=== PATIENT | female | born 1945 | race Caucasian/White ===

== ENCOUNTER 2016-09-20 11:25 | Inpatient (IN) ==
[2016-09-20] MEDS ORDERED: *HR* OxyCODONE Immed Rel 5 MG TABLET PO PRN ×2 (11:49→11:50)
--- NOTE | 2016-09-20 12:12 | History & Physical Report ---
Date of Encounter: 09/20/16 Time of Encounter: 12:12 24 Hour HP Update - Instructions Instructions: If the History and Physical is less than 30 days old and was completed prior to A.M. admission and or procedure and has NOT been updated on calendar day of procedure please complete this update prior to performing procedure. - Update Patient reports changes in Medical Condition: No Changes in assessment/condition: No Changes in Medication: No Preop tests/diagnostics Reviewed: Yes Surgery Remains Indicated: Yes Consent for Planned Operative Procedure(s) Verified: Yes
--- NOTE | 2016-09-20 12:15 | Physcial Medicine-Consult Note ---
Date of Encounter: 09/21/16 Time of Encounter: 12:13 Physical Medicine - AP (1) Status post right knee replacement Status: Acute Assessment and plan: 1. Rehab: Admit to rehab. Consult PT/OT/TR to address gait, knee ROM, safety , transfers and ADLs. 2. Pain: she is complaining of knee pain. We will adjust her pain medication to control her pain to allow her to participate with therapies 3. DVT prophylaxis: Continue ECASA 325 po daily per her surgeons protocol. Monitor her for signs of dvt. 4. Will monitor for signs of cellulitis of the knee-initiate antibiotic therapy if cellulitis occcurs. 5. Estimated length of stay: 5 days Code(s): Z96.651 - Presence of right artificial knee joint SNOMED Code(s): 678033312 Physical Medicine - HPI - Data of Consult Consult date: 09/20/16 Requesting Physician: Casey Melendez DO Primary Care Provider: Kenn Guzman - Consult Narrative Reason for consult: s/p right total knee arthroplasty History of present illness: Ms. Ramirez is a 71 year old female who presents for inpatient rehabilitation following a right total knee arthroplasty secondary to severe right knee degenerative disease. She is complaining of right knee pain. Otherwise, doing well. CC: Casey Melendez DO Past Med Surg Social Fam HX - Past Medical History Medical history: atrial fibrillation, GERD, hyperlipidemia, hypertension Psychiatric history: no psych history - Social History Smoking Status: Never smoker Smokeless Tobacco Status: No Alcohol use: none Drug use: none - Family History Mother Hx Family Cardiac Disorders: Yes Father Hx Family Cardiac Disorders: Yes Hx Family Endocrine Disorder: Yes (diabetes) Medications and Allergies Aspirin Enteric Coated [Aspirin EC] 325 mg PO DAILY #21 tablet. 09/17/16 [Rx] Albuterol Sulfate [Proair Hfa] 2 puff IH Q4H PRN 09/18/16 [History] Atorvastatin [Lipitor] 40 mg PO HS 09/18/16 [History] Budesonide [Pulmicort Flexhaler 180mcg] 2 puff IH BID 09/18/16 [History] Cetirizine HCl [Zyrtec] 10 mg PO QPM 09/18/16 [History] Duloxetine HCl [Cymbalta] 60 mg PO DAILY 09/18/16 [History] Ergocalciferol (VITAMIN D2) [Vitamin D2] 50,000 unit PO QMONTH 09/18/16 [History ] Fluticasone Propionate Nasal [Flonase] 1 spr NS DAILY 09/18/16 [History] Losartan Potassium [Cozaar] 100 mg PO DAILY 09/18/16 [History] Magnesium Oxide [Magnesium] 250 mg PO DAILY 09/18/16 [History] Metformin HCl [Metformin HCl ER] 500 mg PO QPM 09/18/16 [History] Metoprolol Succinate 200 mg PO DAILY 09/18/16 [History] Omeprazole [PriLOSEC] 20 mg PO DAILY 09/18/16 [History] OxyCODONE Immed Rel [Roxicodone 5 MG] 5 mg PO Q6HR PRN 09/20/16 [History] Allergies ciprofloxacin [From Cipro] Allergy (Mild, Verified 09/18/16 09:34) Hives - Constitutional Constitutional: Absent: chills, fever(s) - Cardiovascular Cardiovascular: Absent: chest pain, diaphoresis, dyspnea - Respiratory Respiratory: Absent: cough, dyspnea - Gastrointestinal Gastrointestinal: Present: constipation. Absent: abdominal pain - Genitourinary Genitourinary: Absent: urinary frequency, urinary incontinence, urinary urgency - Musculoskeletal Musculoskeletal: Present: arthralgias - Integumentary Integumentary: Present: erythema Physical Medicine - Exam - Constitutional General appearance: average body habitus, cooperative, no acute distress - Respiratory Respiratory exam: Present: CTAB - Cardiovascular Cardiovascular exam: Present: RRR - GI/Abdominal GI/Abdominal exam: Present: normal bowel sounds, soft. Absent: tenderness - Extremities Exam Extremities exam: Absent: calf tenderness Additional comments: Dressing is intact over the right knee. There is erythema along the medial and lateral aspects of the knee and thigh. Motor strength is 5/5 in the bilateral lower limbs. No calf pain. Physical Medicine - Results - Labs CBC & Chem 7: 09/21/16 05:15 09/21/16 05:15 Consult Discharge Plan - Plan Referrals: Armani Valentin MD [Primary Care Provider] - (Follow up on September at 8:30 am Maria Elena Salgado [address] [facility] [address] [place], [place] [phone] Follow up on Thursday, September 29, 2016 at 2:00 pm Chris Linares [address] [place], [place] [phone] Follow up on September at 9:15 am Bartolome Anderson [address] [place], [place] [phone] Follow up on Monday, October 17, 2016 at 8:40 am Tree Johnson [address] [place], [place] [phone] Follow up on Sunday, December 04, 2016 at 2:00 pm Armani Valentin [address] [place] [address] )
--- NOTE | 2016-09-20 13:43 | Internal Med History&Physical ---
Date of Encounter: 09/20/16 Time of Encounter: 13:23 Assessment and Plan (1) Status post right knee replacement Current visit: Yes Status: Acute Patient is here for rehabilitation status post right total knee replacement for osteoarthritis. Internal Medicine - H&P: HPI Chief complaint: Patient is here for rehabilitation status post right total knee replacement Admitted From: Hospital to Hospital Transfer Plans for Post Hospital Care: Home History of present illness: Ms. Ramirez is a 71 year old female Patient has a history of long-term pain associated with osteoarthritis of her knee Past Med Surg Social Fam HX - Past Medical History Medical history: atrial fibrillation, GERD, hyperlipidemia, hypertension Psychiatric history: no psych history - Social History Smoking Status: Never smoker Smokeless Tobacco Status: No Alcohol use: none Drug use: none - Family History Mother Hx Family Cardiac Disorders: Yes Father Hx Family Cardiac Disorders: Yes Hx Family Endocrine Disorder: Yes (diabetes) Internal Medicine - H&P: Meds Aspirin Enteric Coated [Aspirin EC] 325 mg PO DAILY #21 tablet. 09/17/16 [Rx] Albuterol Sulfate [Proair Hfa] 2 puff IH Q4H PRN 09/18/16 [History] Atorvastatin [Lipitor] 40 mg PO HS 09/18/16 [History] Budesonide [Pulmicort Flexhaler 180mcg] 2 puff IH BID 09/18/16 [History] Cetirizine HCl [Zyrtec] 10 mg PO QPM 09/18/16 [History] Duloxetine HCl [Cymbalta] 60 mg PO DAILY 09/18/16 [History] Ergocalciferol (VITAMIN D2) [Vitamin D2] 50,000 unit PO QMONTH 09/18/16 [History ] Fluticasone Propionate Nasal [Flonase] 1 spr NS DAILY 09/18/16 [History] Losartan Potassium [Cozaar] 100 mg PO DAILY 09/18/16 [History] Magnesium Oxide [Magnesium] 250 mg PO DAILY 09/18/16 [History] Metformin HCl [Metformin HCl ER] 500 mg PO QPM 09/18/16 [History] Metoprolol Succinate 200 mg PO DAILY 09/18/16 [History] Omeprazole [PriLOSEC] 20 mg PO DAILY 09/18/16 [History] OxyCODONE Immed Rel [Roxicodone 5 MG] 5 mg PO Q6HR PRN 09/20/16 [History] Allergies ciprofloxacin [From Cipro] Allergy (Mild, Verified 09/18/16 09:34) Hives All Systems PM: A 10-system review of systems was performed and is negative for pertinent findings except as documented above in the HPI. - Constitutional Vitals: Temp Pulse Resp BP Pulse Ox 98.2 F 88 16 93/56 94 L 09/20/16 11:32 09/20/16 11:32 09/20/16 11:32 09/20/16 11:32 09/20/16 11:32 - Head Head exam: Present: atraumatic, normal inspection, normocephalic - Neck Neck exam general surgery: Present: supple, trachea midline. Absent: lymphadenopathy - Respiratory Respiratory exam: Present: CTAB. Absent: accessory muscle use, rales, rhonchi, wheezes - Cardiovascular Cardiovascular exam: Present: RRR, +S1, +S2. Absent: diastolic murmur, gallop, rubs, systolic murmur - GI/Abdominal GI/Abdominal exam: Present: normal bowel sounds, soft, no peritoneal signs. Absent: distended, tenderness Internal Med - H&P Results - Labs Labs: Pending
[2016-09-20] MEDS: MOM Conc 10 ML UD.LIQ PO PRN (14:51)
[2016-09-20] MEDS: *HR* OxyCODONE/APAP 10/325 TABLET PO PRN ×2 (14:51→21:09)
[2016-09-20] MEDS ORDERED: METFORMIN HCL 500 MG PO SCH (18:00)
[2016-09-20] MEDS: Loratadine 10 MG TABLET PO SCH (18:40)
[2016-09-20] MEDS: *HR* Metformin 500 MG TABLET PO SCH (18:40)
[2016-09-20] MEDS: Beclomethasone 80mcg MDI IH SCH (22:13)
[2016-09-21] MEDS: *HR* OxyCODONE/APAP 10/325 TABLET PO PRN ×4 (04:23→20:43)
[2016-09-21 05:39] LABS: Basophils % 0.3 %; Eosinophils # 0.1 K/mcL (0.0-0.6); Eosinophils % 0.6 %; Hematocrit 30.8 % (35.3-44.9); Hemoglobin 9.9 g/dL (11.5-15.4); Immature Granulocytes % 0.6 % (0-4); Lymphocytes % 17.5 %; Mean Corpuscular HGB Conc 32.1 g/dL (31.6-35.5); Mean Corpuscular Hemoglobin 26.9 pg (28.0-33.3); Mean Corpuscular Volume 83.7 fL (83.0-100.0); Mean Platelet Volume 9.8 fL (9.4-12.4); Neutrophils # 8.4 K/mcL (1.6-8.9); Platelet Count 228 K/mcL (140-400); Red Blood Count 3.68 M/mcL (3.82-4.97)
[2016-09-21 05:40] LABS: INR 1.3; Prothrombin Time 13.7 Seconds (9.4-12.1)
[2016-09-21 05:49] LABS: BUN/Creatinine Ratio 22 (6-26); Blood Urea Nitrogen 17 mg/dL (7-20); Carbon Dioxide 26 mEq/L (19-29); Chloride 100 mEq/L (98-109); Glucose 158 mg/dL (70-99); Osmolality,Calculated 285 (280-300); Potassium 4.6 mEq/L (3.5-4.5); Sodium 135 mEq/L (136-145); eGFR For African Americans > 60 (> 60); eGFR For Non-African Americans > 60 (> 60)
[2016-09-21] MEDS: Aspirin Enteric Coated 325 MG Tablet PO SCH (08:10)
[2016-09-21] MEDS: Beclomethasone 80mcg MDI IH SCH ×2 (08:12→20:43)
[2016-09-21] MEDS: MAGNESIUM OXIDE 250 MG PO SCH (08:12)
[2016-09-21] MEDS ORDERED: Metoprolol XL (24 HR) Succ 50 MG TAB.ER.24H PO SCH ×2 (09:00)
[2016-09-21] MEDS ORDERED: Fluticasone Propionate Nasal 50 MCG/SPRAY BOTTLE NS SCH (09:00)
--- NOTE | 2016-09-21 13:20 | Internal Med Progress Note ---
Date of Encounter: 09/21/16 Time of Encounter: 13:19 - Assessment and plan (1) Status post right knee replacement Current Visit: Yes Status: Acute Assessment and plan: Patient has had a long history of pain and osteoarthritis - Time Spent With Patient less than 15 minutes - Subjective Interval history: Patient's beginning to work with a therapist and ambulating with a walker short distances. She is going to the gym with PT and OT along with TR. - Constitutional Vitals: Temp Pulse Resp BP Pulse Ox 96.7 F L 106 16 92/60 93 L 09/21/16 11:50 09/21/16 11:50 09/21/16 11:50 09/21/16 11:50 09/21/16 11:50 - Head Head exam: Present: atraumatic, normal inspection, normocephalic - Neck Neck exam general surgery: Present: supple, trachea midline. Absent: lymphadenopathy - Respiratory Respiratory exam: Present: CTAB. Absent: accessory muscle use, rales, rhonchi, wheezes - Cardiovascular Cardiovascular exam: Present: RRR, +S1, +S2. Absent: diastolic murmur, gallop, rubs, systolic murmur - GI/Abdominal GI/Abdominal exam: Present: normal bowel sounds, soft, no peritoneal signs. Absent: distended, tenderness Internal Medicine: Result - Labs CBC & Chem 7: 09/21/16 05:15 09/21/16 05:15 Labs: Short CBC 09/21/16 Range/Units 05:15 WBC 11.6 H (4.3-11.1) K/mcL Hgb 9.9 L (11.5-15.4) g/dL Hct 30.8 L (35.3-44.9) % Plt Count 228 (140-400) K/mcL Neutrophils # 8.4 (1.6-8.9) K/mcL BMP 09/21/16 05:15 Sodium 135 L Potassium 4.6 H Chloride 100 Carbon Dioxide 26 BUN 17 Creatinine 0.77 Glucose 158 H Calcium 9.0 Lab is stable - ABG Interpretation ABG results: PT/INR, D-dimer PT 13.7 Seconds (9.4-12.1) H 09/21/16 05:15 Consult Discharge Plan - Plan Referrals: Armani Valentin MD [Primary Care Provider] - (Follow up on September at 8:30 am Maria Elena Salgado [address] [place], [place] [phone] Follow up on Thursday, September 29, 2016 at 2:00 pm Chris Linares [address] [place], [place] [phone] Follow up on September at 9:15 am Bartolome Anderson [address] [place], [place] [phone] Follow up on Monday, October 17, 2016 at 8:40 am Tree Johnson [address] [place], [place] [phone] Follow up on Sunday, December 04, 2016 at 2:00 pm Armani Valentin [address] [place] [address] )
[2016-09-21] MEDS: Metoprolol XL (24 HR) Succ 50 MG TAB.ER.24H PO SCH (16:50)
[2016-09-21] MEDS: Loratadine 10 MG TABLET PO SCH (18:22)
[2016-09-21] MEDS: *HR* Metformin 500 MG TABLET PO SCH (18:22)
[2016-09-21] MEDS: Fluticasone Propionate Nasal 50 MCG/SPRAY BOTTLE NS SCH (20:43)
[2016-09-22] MEDS: *HR* OxyCODONE/APAP 10/325 TABLET PO PRN (06:43)
[2016-09-22] MEDS: MAGNESIUM OXIDE 250 MG PO SCH (09:05)
[2016-09-22] MEDS: Aspirin Enteric Coated 325 MG Tablet PO SCH (09:05)
[2016-09-22] MEDS: Beclomethasone 80mcg MDI IH SCH ×2 (09:06→21:05)
[2016-09-22] MEDS ORDERED: *HR* OxyCODONE/APAP 5/325 TABLET PO PRN ×2 (11:39)
[2016-09-22] MEDS: *HR* OxyCODONE/APAP 5/325 TABLET PO PRN ×2 (13:39→22:21)
[2016-09-22] MEDS: MOM Conc 10 ML UD.LIQ PO PRN (17:47)
[2016-09-22] MEDS: Loratadine 10 MG TABLET PO SCH (17:47)
[2016-09-22] MEDS: *HR* Metformin 500 MG TABLET PO SCH (17:47)
[2016-09-22] MEDS: Metoprolol XL (24 HR) Succ 50 MG TAB.ER.24H PO SCH (17:48)
[2016-09-22] MEDS: Fluticasone Propionate Nasal 50 MCG/SPRAY BOTTLE NS SCH (21:05)
[2016-09-23] MEDS: *HR* OxyCODONE/APAP 5/325 TABLET PO PRN ×3 (06:53→20:39)
[2016-09-23] MEDS: Aspirin Enteric Coated 325 MG Tablet PO SCH (08:05)
[2016-09-23] MEDS: Beclomethasone 80mcg MDI IH SCH ×2 (08:05→20:38)
[2016-09-23] MEDS: MAGNESIUM OXIDE 250 MG PO SCH (08:07)
[2016-09-23] MEDS: Metoprolol XL (24 HR) Succ 50 MG TAB.ER.24H PO SCH (17:42)
[2016-09-23] MEDS: Loratadine 10 MG TABLET PO SCH (17:42)
[2016-09-23] MEDS: *HR* Metformin 500 MG TABLET PO SCH (17:42)
--- NOTE | 2016-09-23 17:58 | Internal Med Progress Note ---
Date of Encounter: 09/23/16 Time of Encounter: 17:56 - Assessment and plan (1) Status post right knee replacement Current Visit: Yes Status: Acute Assessment and plan: Doing better with PT OT. Improving in terms of gait, ambulation. Range of motion improving. Patient has had a long history of pain and osteoarthritis (2) Arrhythmia Current Visit: Yes Status: Chronic Assessment and plan: Rate controlled with metoprolol occasionally blood pressure is below 100 systolic. Would get symptomatic. Qualifiers: Arrhythmia type: unspecified cardiac arrhythmia Qualified Code(s): I49.9 - Cardiac arrhythmia, unspecified (3) Hypertension Current Visit: Yes Status: Chronic Qualifiers: Hypertension type: unspecified secondary hypertension Qualified Code(s): I15.9 - Secondary hypertension, unspecified; I15 - Secondary hypertension - Time Spent With Patient less than 15 minutes - Subjective Interval history: Patient feels better today however still feels dizzy when she stands up. The dizziness seems to be better when her blood pressure is up. She complains of constipation. She still complains of right knee pain. No shortness of breath. No chest pain. No syncopal episode. Good oral intake. - Constitutional Vitals: Temp Pulse Resp BP Pulse Ox 97.2 F L 101 16 144/105 97 09/23/16 07:21 09/23/16 07:21 09/23/16 07:21 09/23/16 07:21 09/23/16 07:21 General appearance: Present: A&O X 3, pleasant, no acute distress - Respiratory Respiratory exam: Present: CTAB. Absent: accessory muscle use, rales, rhonchi, wheezes - Cardiovascular Cardiovascular exam: Present: irregular rhythm - GI/Abdominal GI/Abdominal exam: Present: normal bowel sounds, soft, no peritoneal signs. Absent: distended, tenderness - Expanded Lower Extremities Exam Knee exam: Present: erythema, swelling, tenderness. Absent: warmth - Neurological Exam Neurological exam: Present: oriented X3, no focal deficits. Absent: pronater drift, facial droop, speech deficit Internal Medicine: Result - Labs CBC & Chem 7: 09/21/16 05:15 09/21/16 05:15 - ABG Interpretation ABG results: PT/INR, D-dimer PT 13.7 Seconds (9.4-12.1) H 09/21/16 05:15 - VTE Documentation of Mechanical Device: Graduated compression elastic hosiery Consult Discharge Plan - Plan Referrals: Armani Valentin MD [Primary Care Provider] - (Follow up on September at 8:30 am Maria Elena Salgado [address] [place], [place] [phone] Follow up on Thursday, September 29, 2016 at 2:00 pm Chris Linares [address] [place], [place] [phone] Follow up on September at 9:15 am Bartolome Anderson [address] [place], [place] [phone] Follow up on Monday, October 17, 2016 at 8:40 am Tree Johnson [address] [place], [place] [phone] Follow up on Sunday, December 04, 2016 at 2:00 pm Armani Valentin [address] [place], [place] [phone])
[2016-09-23] MEDS: Fluticasone Propionate Nasal 50 MCG/SPRAY BOTTLE NS SCH (20:39)
--- NOTE | 2016-09-24 09:10 | Internal Med Progress Note ---
Date of Encounter: 09/24/16 Time of Encounter: 09:09 - Assessment and plan (1) Status post right knee replacement Current Visit: Yes Status: Acute Assessment and plan: Doing better with PT OT. Improving in terms of gait, ambulation. Range of motion improving. Patient has had a long history of pain and osteoarthritis (2) Arrhythmia Current Visit: Yes Status: Chronic Assessment and plan: Rate controlled with metoprolol occasionally blood pressure is below 100 systolic. Would get symptomatic. Qualifiers: Arrhythmia type: unspecified cardiac arrhythmia Qualified Code(s): I49.9 - Cardiac arrhythmia, unspecified (3) Hypertension Current Visit: Yes Status: Chronic Qualifiers: Hypertension type: unspecified secondary hypertension Qualified Code(s): I15.9 - Secondary hypertension, unspecified; I15 - Secondary hypertension - Subjective Interval history: Patient feels better today however still feels dizzy when she stands up. The dizziness seems to be better when her blood pressure is up. She complains of constipation. She still complains of right knee pain. No shortness of breath. No chest pain. No syncopal episode. Good oral intake. - Constitutional Vitals: Temp Pulse Resp BP Pulse Ox 98.4 F 87 18 128/65 97 09/24/16 07:00 09/24/16 07:00 09/24/16 07:00 09/24/16 07:00 09/24/16 07:00 General appearance: Present: A&O X 3, pleasant, no acute distress - Respiratory Respiratory exam: Present: CTAB. Absent: accessory muscle use, rales, rhonchi, wheezes - Cardiovascular Cardiovascular exam: Present: RRR, +S1, +S2. Absent: diastolic murmur, gallop, rubs, systolic murmur - GI/Abdominal GI/Abdominal exam: Present: normal bowel sounds, soft, no peritoneal signs. Absent: distended, tenderness Internal Medicine: Result - Labs CBC & Chem 7: 09/21/16 05:15 09/21/16 05:15 - ABG Interpretation ABG results: PT/INR, D-dimer PT 13.7 Seconds (9.4-12.1) H 09/21/16 05:15 - VTE Documentation of Mechanical Device: Graduated compression elastic hosiery Consult Discharge Plan - Plan Referrals: Armani Valentin MD [Primary Care Provider] - (Follow up on September at 8:30 am Maria Elena Salgado [address] [place], [place] [phone] Follow up on Thursday, September 29, 2016 at 2:00 pm Chris Linares [address] [place], [place] [phone] Follow up on September at 9:15 am Bartolome Anderson [address] [place], [place] [phone] Follow up on Monday, October 17, 2016 at 8:40 am Tree Johnson [address] [place], [place] [phone] Follow up on Sunday, December 04, 2016 at 2:00 pm Armani Valentin [address] [place] [address] )
[2016-09-24] MEDS: *HR* OxyCODONE/APAP 5/325 TABLET PO PRN ×4 (09:16→22:59)
[2016-09-24] MEDS: Aspirin Enteric Coated 325 MG Tablet PO SCH (09:16)
[2016-09-24] MEDS: MOM Conc 10 ML UD.LIQ PO PRN (09:17)
[2016-09-24] MEDS: Beclomethasone 80mcg MDI IH SCH ×2 (09:17→20:38)
[2016-09-24] MEDS: MAGNESIUM OXIDE 250 MG PO SCH (09:17)
[2016-09-24] MEDS: *HR* Metformin 500 MG TABLET PO SCH (18:01)
[2016-09-24] MEDS: Metoprolol XL (24 HR) Succ 50 MG TAB.ER.24H PO SCH (18:01)
[2016-09-24] MEDS: Loratadine 10 MG TABLET PO SCH (18:01)
[2016-09-24] MEDS: Fluticasone Propionate Nasal 50 MCG/SPRAY BOTTLE NS SCH (20:38)
[2016-09-25 05:26] LABS: Basophils # 0.1 K/mcL (0.0-0.2); Basophils % 0.8 %; Eosinophils # 0.2 K/mcL (0.0-0.6); Eosinophils % 1.8 %; Hematocrit 29.5 % (35.3-44.9); Hemoglobin 9.3 g/dL (11.5-15.4); Immature Granulocytes % 0.9 % (0-4); Lymphocytes # 3.3 K/mcL (0.6-4.6); Lymphocytes % 31.6 %; Mean Corpuscular HGB Conc 31.5 g/dL (31.6-35.5); Mean Corpuscular Hemoglobin 26.9 pg (28.0-33.3); Mean Corpuscular Volume 85.3 fL (83.0-100.0); Mean Platelet Volume 9.4 fL (9.4-12.4); Monocytes # 0.8 K/mcL (0.0-1.3); Monocytes % 7.4 %; Neutrophils # 5.9 K/mcL (1.6-8.9); Platelet Count 292 K/mcL (140-400); Red Blood Count 3.46 M/mcL (3.82-4.97); Red Cell Distribution Width 15.9 % (11.5-14.5); Segmented Neutrophils % 57.5 %
[2016-09-25 05:38] LABS: BUN/Creatinine Ratio 29 (6-26); Blood Urea Nitrogen 22 mg/dL (7-20); Calcium 9.4 mg/dL (8.6-10.8); Carbon Dioxide 25 mEq/L (19-29); Chloride 104 mEq/L (98-109); Glucose 141 mg/dL (70-99); Osmolality,Calculated 292 (280-300); Potassium 5.8 mEq/L (3.5-4.5); Sodium 138 mEq/L (136-145); eGFR For African Americans > 60 (> 60); eGFR For Non-African Americans > 60 (> 60)
[2016-09-25] MEDS: *HR* OxyCODONE/APAP 5/325 TABLET PO PRN ×3 (08:22→21:15)
[2016-09-25] MEDS: Aspirin Enteric Coated 325 MG Tablet PO SCH (08:22)
[2016-09-25] MEDS: Beclomethasone 80mcg MDI IH SCH ×2 (08:23→21:15)
[2016-09-25] MEDS: MAGNESIUM OXIDE 250 MG PO SCH (08:24)
--- NOTE | 2016-09-25 13:30 | Internal Med Progress Note ---
Date of Encounter: 09/25/16 Time of Encounter: 13:27 - Assessment and plan (1) Status post right knee replacement Current Visit: Yes Status: Acute - Subjective Interval history: Patient complains quite often or fatigue. Staff came to me and stated that her pulse rate was up. She does have a history of atrial fib. I am going to get an EKG and follow this and consider maybe adding Lanoxin. She also has appointment with her brick offbearer at the end of the week. - Constitutional Vitals: Temp Pulse Resp BP Pulse Ox 98.3 F 81 16 127/63 97 09/25/16 07:16 09/25/16 07:16 09/25/16 07:16 09/25/16 07:16 09/25/16 07:16 General appearance: Present: A&O X 3, pleasant, no acute distress - Head Head exam: Present: atraumatic, normal inspection, normocephalic - Neck Neck exam general surgery: Present: supple, trachea midline. Absent: lymphadenopathy - Respiratory Respiratory exam: Present: CTAB. Absent: accessory muscle use, rales, rhonchi, wheezes - Cardiovascular Cardiovascular exam: Present: irregular rhythm, RRR, +S1, +S2. Absent: diastolic murmur, gallop, rubs, systolic murmur Internal Medicine: Result - Labs CBC & Chem 7: 09/25/16 04:45 09/25/16 04:45 Labs: Short CBC 09/25/16 Range/Units 04:45 WBC 10.3 (4.3-11.1) K/mcL Hgb 9.3 L (11.5-15.4) g/dL Hct 29.5 L (35.3-44.9) % Plt Count 292 (140-400) K/mcL Neutrophils # 5.9 (1.6-8.9) K/mcL BMP 09/25/16 04:45 Sodium 138 Potassium 5.8 H Chloride 104 Carbon Dioxide 25 BUN 22 H Creatinine 0.75 Glucose 141 H Calcium 9.4 - ABG Interpretation ABG results: PT/INR, D-dimer PT 13.7 Seconds (9.4-12.1) H 09/21/16 05:15 - VTE Documentation of Mechanical Device: Graduated compression elastic hosiery Consult Discharge Plan - Plan Referrals: Armani Valentin MD [Primary Care Provider] - (Follow up on September at 8:30 am Maria Elena Salgado [address] [place], [place] [phone] Follow up on Thursday, September 29, 2016 at 2:00 pm Chris Linares [address] [place], [place] [phone] Follow up on September at 9:15 am Bartolome Anderson [address] [place], [place] [phone] Follow up on Monday, October 17, 2016 at 8:40 am Tree Johnson [address] [place], [place] [phone] Follow up on Sunday, December 04, 2016 at 2:00 pm Armani Valentin [address] [place] [address] )
[2016-09-25] MEDS ORDERED: *HR* Digoxin 0.5 MG/2 ML AMPUL IVP ONE (15:15)
[2016-09-25] MEDS: *HR* Digoxin 0.5 MG/2 ML AMPUL IVP SCH ×2 (17:03→18:14)
[2016-09-25] MEDS: Metoprolol XL (24 HR) Succ 50 MG TAB.ER.24H PO SCH (18:15)
[2016-09-25] MEDS: *HR* Metformin 500 MG TABLET PO SCH (18:15)
[2016-09-25] MEDS: Loratadine 10 MG TABLET PO SCH (18:15)
[2016-09-25] MEDS: Fluticasone Propionate Nasal 50 MCG/SPRAY BOTTLE NS SCH (21:15)
[2016-09-26] MEDS: *HR* OxyCODONE/APAP 5/325 TABLET PO PRN ×4 (07:42→21:36)
[2016-09-26] MEDS: Beclomethasone 80mcg MDI IH SCH ×2 (08:14→21:36)
[2016-09-26] MEDS: Aspirin Enteric Coated 325 MG Tablet PO SCH (08:15)
[2016-09-26] MEDS: MAGNESIUM OXIDE 250 MG PO SCH (10:23)
--- NOTE | 2016-09-26 13:46 | Internal Med Progress Note ---
Date of Encounter: 09/26/16 Time of Encounter: 13:44 - Assessment and plan (1) Status post right knee replacement Current Visit: Yes Status: Acute Assessment and plan: Patients taking therapy and improving on a daily basis. (2) Atrial fib/flutter, transient Current Visit: Yes Status: Acute Assessment and plan: Controlled and I am reported on 0.25 of dig daily - Time Spent With Patient less than 15 minutes - Subjective Interval history: Patient is much better today. The last pulse rate was 70. Patient is working with her therapist. - Constitutional Vitals: Temp Pulse Resp BP Pulse Ox 97.4 F L 125 20 110/60 98 09/26/16 11:00 09/26/16 11:00 09/26/16 11:00 09/26/16 13:15 09/26/16 11:00 General appearance: Present: A&O X 3, pleasant, no acute distress - Head Head exam: Present: atraumatic, normal inspection, normocephalic - Neck Neck exam general surgery: Present: supple, trachea midline. Absent: lymphadenopathy - Respiratory Respiratory exam: Present: CTAB. Absent: accessory muscle use, rales, rhonchi, wheezes - Cardiovascular Cardiovascular exam: Present: RRR, +S1, +S2. Absent: diastolic murmur, gallop, rubs, systolic murmur Internal Medicine: Result - Labs CBC & Chem 7: 09/25/16 04:45 09/25/16 04:45 Labs: After follow her potassium. - ABG Interpretation ABG results: PT/INR, D-dimer PT 13.7 Seconds (9.4-12.1) H 09/21/16 05:15 - VTE Documentation of Mechanical Device: Graduated compression elastic hosiery Consult Discharge Plan - Plan Referrals: Maria Elena Salgado, PAC [Physician Fitness Assistant] - 10/04/16 1:45 pm Armani Valentin MD [Primary Care Provider] - (Follow up on September at 8:30 am Maria Elena Salgdao [address] [place], [place] [phone] Follow up on Thursday, September 29, 2016 at 2:00 pm Chris Linares [address] [place], [place] [phone] Follow up on September at 9:15 am Bartolome Anderson [address] [place], [place] [phone] Follow up on Monday, October 17, 2016 at 8:40 am Tree Johnson [address] [place], [place] [phone] Follow up on Sunday, December 04, 2016 at 2:00 pm Armani Valentin [address] [place] [address] )
[2016-09-26] MEDS: *HR* Digoxin 0.25 MG TABLET PO SCH (14:28)
--- NOTE | 2016-09-26 14:39 | Electrocardiograph Report ---
[facility] Test Date: 2016-09-25 Pat Name: Florina Ramirez Department: [id number] Room: 109 Gender: F Cane Stripper: SRIKANTH : 1945 Requested By: Casey Melendez Order Number: [id number] Reading MD: Shelby Linares Measurements Intervals [place] Rate: 119 P: VT: 0 QRS: 4 QRSD: 77 T: 10 QT: 349 QTc: 419 Interpretive Statements ATRIAL FIBRILLATION WITH RAPID VENTRICULAR RESPONSE LOW QRS VOLTAGE IN PRECORDIAL LEADS NONSPECIFIC ST \T\ T-WAVE ABNORMALITY ABNORMAL RHYTHM ECG Electronically Signed On 09-26-16 14:28:08 EST by Shelby Linares
[2016-09-26] MEDS: Metoprolol XL (24 HR) Succ 50 MG TAB.ER.24H PO SCH (17:38)
[2016-09-26] MEDS: Loratadine 10 MG TABLET PO SCH (17:38)
[2016-09-26] MEDS: *HR* Metformin 500 MG TABLET PO SCH (17:38)
[2016-09-26] MEDS: Fluticasone Propionate Nasal 50 MCG/SPRAY BOTTLE NS SCH (21:36)
[2016-09-27 05:40] LABS: BUN/Creatinine Ratio 29 (6-26); Blood Urea Nitrogen 23 mg/dL (7-20); Calcium 9.5 mg/dL (8.6-10.8); Carbon Dioxide 21 mEq/L (19-29); Chloride 106 mEq/L (98-109); Glucose 124 mg/dL (70-99); Osmolality,Calculated 289 (280-300); Potassium 5.4 mEq/L (3.5-4.5); Sodium 137 mEq/L (136-145); eGFR For African Americans > 60 (> 60); eGFR For Non-African Americans > 60 (> 60)
[2016-09-27] MEDS: *HR* OxyCODONE/APAP 5/325 TABLET PO PRN ×3 (08:03→19:24)
[2016-09-27] MEDS: Aspirin Enteric Coated 325 MG Tablet PO SCH (08:04)
[2016-09-27] MEDS: MAGNESIUM OXIDE 250 MG PO SCH (08:04)
[2016-09-27] MEDS: Beclomethasone 80mcg MDI IH SCH ×2 (08:04→19:23)
[2016-09-27] MEDS: *HR* Digoxin 0.25 MG TABLET PO SCH (08:04)
--- NOTE | 2016-09-27 16:09 | Psychological Evaluation ---
Date of Encounter: 09/27/16 Time of Encounter: 13:00 History of Present Illness History of present illness: Ms. Ramirez is a 71 year old female admitted to [facility] for rehabilitation following a right total knee replacement due to osteoarthritis. Ms. Ramirez was seen on tis date to assess her emotional adjustment as she has been tearful during her rehabilitation treatment. Past Medical History Medical history: Significant for arthritis, atrial fibrillation, GERD, HTN and hyperlipidemia. - Psychiatric History Additional Psychiatric History: Ms. Ramirez reported that she has been treated for depression by her primary care physician and took Lexapro for a number of years. Her antidepressant medication was switched to Cymbalta in May 2016. 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 There is no history of psychiatric hospitalization and no history of suicidal ideation, intention or attempt. Family psychiatric hx: Ms. Ramirez reported that depression runs on her father's side of the family and two of her aunts had depression. Home Medications and Allergies Aspirin Enteric Coated [Aspirin EC] 325 mg PO DAILY #21 tablet. 09/17/16 [Rx] Albuterol Sulfate [Proair Hfa] 2 puff IH Q4H PRN 09/18/16 [History] Atorvastatin [Lipitor] 40 mg PO HS 09/18/16 [History] Budesonide [Pulmicort Flexhaler 180mcg] 2 puff IH BID 09/18/16 [History] Cetirizine HCl [Zyrtec] 10 mg PO QPM 09/18/16 [History] Duloxetine HCl [Cymbalta] 60 mg PO DAILY 09/18/16 [History] Ergocalciferol (VITAMIN D2) [Vitamin D2] 50,000 unit PO QMONTH 09/18/16 [History ] Fluticasone Propionate Nasal [Flonase] 1 spr NS DAILY 09/18/16 [History] Losartan Potassium [Cozaar] 100 mg PO DAILY 09/18/16 [History] Magnesium Oxide [Magnesium] 250 mg PO DAILY 09/18/16 [History] Metformin HCl [Metformin HCl ER] 500 mg PO QPM 09/18/16 [History] Metoprolol Succinate 200 mg PO DAILY 09/18/16 [History] Omeprazole [PriLOSEC] 20 mg PO DAILY 09/18/16 [History] OxyCODONE Immed Rel [Roxicodone 5 MG] 5 mg PO Q6HR PRN 09/20/16 [History] Allergies ciprofloxacin [From Cipro] Allergy (Mild, Verified 09/18/16 09:34) Hives Social History - Social History Social History: Ms. Ramirez has been a for 24 years. Her young (age 47) of colon cancer. She has two sons (ages 47 and 43). Her social support system consists of her sons, [id number] and a close friend. 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 Since her long-term, she spends her typical day doing house chores, cooking, visiting with friends, exercising at a senior center and watching TV. She hopes that the knee replacement will allow her to walk for exercise without intense pain. - Tobacco Use Smoking Status: Never smoker - Alcohol Use Alcohol Use: none - Drug Use Drug Use: none Cognitive/Emotional Assessment - Cognitive Ability Additional Findings: Ms. Ramirez was alert, attentive and fully oriented. Speech was clear, fluent and effective. Speech was of normal rate and intensity. Thought processes were coherent, goal-directed and logical. There were no signs of delusional ideation or perceptual disturbances. She was not formally assessed for any cognitive dysfunction. She was able to provide personal and medical information without problem. Verbal comprehension appeared intact and there were no abnormality in cognitive functioning noted. - Emotional Status Additional Findings: Ms. Ramirez was friendly, cooperative and pleasant. She was open and forthright and presented as open to treatment suggestions. She acknowledged that she has been more emotional and tearful and attributed this to lack of sleep, pain medication and intense pain post-surgery. She stated that she feels she is making good gains in her rehabilitation therapy and expects to be able to return home and to independent living. She expressed confidence in her ability to manage her pain and stated that she has been monitoring her negative self- statements and "sweeping bad thoughts away". Mood appeared mildly depressed. She exhibited good emotional control and did not become tearful during this interview. BDI- Fast Screen: score 0 (no indication of major depressive disorder) Assessment & Plan - Diagnosis (1) Adjustment disorder with depressed mood - Treatment Plan Treatment Plan/Recommendations: We reviewed setting realistic goals and expectations for her recovery and rehabilitation. Ms. Ramirez was given a suggestion to track her progress in a landscape architect and planner or her cell phone to remind her of her functional gains and to reduce her feelings of discouragement. There are no other recommendations for psychological treatment interventions at this time. She is to follow up with her primary care physician for medication management of her Cymbalta. Procedures - Intervention Interventions: Supportive Counseling - Session Time Session Start Time: 13:00 Session Stop Time: 14:00
[2016-09-27] MEDS: Fluticasone Propionate Nasal 50 MCG/SPRAY BOTTLE NS SCH (19:21)
[2016-09-27] MEDS: Metoprolol XL (24 HR) Succ 50 MG TAB.ER.24H PO SCH (19:23)
[2016-09-27] MEDS: *HR* Metformin 500 MG TABLET PO SCH (19:23)
[2016-09-27] MEDS: Loratadine 10 MG TABLET PO SCH (19:23)
[2016-09-28] MEDS: *HR* OxyCODONE/APAP 5/325 TABLET PO PRN ×5 (00:02→21:13)
[2016-09-28] MEDS: Aspirin Enteric Coated 325 MG Tablet PO SCH (10:13)
[2016-09-28] MEDS: *HR* Digoxin 0.25 MG TABLET PO SCH (10:13)
[2016-09-28] MEDS: MAGNESIUM OXIDE 250 MG PO SCH (10:14)
[2016-09-28] MEDS: Beclomethasone 80mcg MDI IH SCH ×2 (10:14→21:10)
--- NOTE | 2016-09-28 14:11 | Discharge Summary ---
Date of Encounter: 09/28/16 Time of Encounter: 14:09 - Discharge Diagnosis (1) Status post right knee replacement Priority: Primary Status: Acute (2) Atrial fib/flutter, transient Priority: Secondary Status: Acute - Discharge Medications Home Medications: Aspirin Enteric Coated [Aspirin EC] 325 mg PO DAILY #21 tablet. 09/17/16 [Rx] Albuterol Sulfate [Proair Hfa] 2 puff IH Q4H PRN 09/18/16 [History] Atorvastatin [Lipitor] 40 mg PO HS 09/18/16 [History] Budesonide [Pulmicort Flexhaler 180mcg] 2 puff IH BID 09/18/16 [History] Cetirizine HCl [Zyrtec] 10 mg PO QPM 09/18/16 [History] Duloxetine HCl [Cymbalta] 60 mg PO DAILY 09/18/16 [History] Ergocalciferol (VITAMIN D2) [Vitamin D2] 50,000 unit PO QMONTH 09/18/16 [History ] Fluticasone Propionate Nasal [Flonase] 1 spr NS DAILY 09/18/16 [History] Losartan Potassium [Cozaar] 100 mg PO DAILY 09/18/16 [History] Magnesium Oxide [Magnesium] 250 mg PO DAILY 09/18/16 [History] Metformin HCl [Metformin HCl ER] 500 mg PO QPM 09/18/16 [History] Metoprolol Succinate 200 mg PO DAILY 09/18/16 [History] Omeprazole [PriLOSEC] 20 mg PO DAILY 09/18/16 [History] OxyCODONE Immed Rel [Roxicodone 5 MG] 5 mg PO Q6HR PRN 09/20/16 [History] Allergies/Adverse Reactions: Allergies ciprofloxacin [From Cipro] Allergy (Mild, Verified 09/18/16 09:34) Hives Procedures/tests Complete & Pending: Procedures Performed prior 72 hours Category Date Time Status EKG [ECG 12 lead ECG] [ECG] Stat Y 09/25/16 13:19 Completed Date of admission: 09/20/16 11:25 Primary care physician: Kenn Guzman Consults: 09/20/16 11:32 Consult to Occupational Therapy [CONS] Routine Comment: Evaluate, develop and implement POC Consult to Physical Therapy [CONS] Routine Comment: Evaluate, develop and implement POC Consult to Recreational Therapy [CONS] Routine Comment: Evaluate, develop and implement POC 09/20/16 11:57 Consult to Physical Medicine/Rehab [CONS] Routine Reason for Consult: rehab admit Call Completed: Yes 09/26/16 15:40 Consult to Psychology [CONS] Routine Consulting Provider: Veena Trevizo Reason for Consult: in patient rehab Call Completed: No Discharging clinician: Casey Melendez Anticipated date of discharge: 09/29/16 - Patient Status Disposition: Home Health Service Condition: Good Functional capacity at discharge: uses cane/walker Overall status at discharge: patient is progressing back to baseline - Discharge Instructions Follow Up With: Maria Elena Salgado PAC [Physician Store Associate] - 10/04/16 1:45 pm Armani Valentin MD [Primary Care Provider] - (Follow up on September at 8:30 am Maria Elena Salgado [address] [place], [place] [phone] Follow up on Thursday, September 29, 2016 at 2:00 pm Chris Linares [address] [place], [place] [phone] Follow up on September at 9:15 am Bartolome Anderson [address] [place], [place] [phone] Follow up on Monday, October 17, 2016 at 8:40 am Tree Johnson [address] [place], [place] [phone] Follow up on Sunday, December 04, 2016 at 2:00 pm Armani Valentin [address] [place] [address] ) - Diet and Activity Activity: ambulate only with your walker Diet: advance to your usual diet Interval History: Patient was sent to [facility] rehabilitation after undergoing a total knee replacement for osteoarthritis Hospital course: Ms. Ramirez is a 71 year old female Who was sent to [facility] for rehabilitation. She is ambulating in the remy household distances with her walker and will be discharged tomorrow with the company of her family - Time Spent with Patient Total time spent providing and/or coordinating discharge services: Less than 30 minutes - Constitutional Vitals: Temp Pulse Resp BP Pulse Ox 97.4 F L 68 16 127/68 94 L 09/28/16 07:21 09/28/16 07:21 09/28/16 07:21 09/28/16 07:21 09/28/16 07:21 General appearance: Present: A&O X 3, pleasant, no acute distress - Head Head exam: Present: atraumatic, normal inspection, normocephalic - Neck Neck exam general surgery: Present: supple, trachea midline. Absent: lymphadenopathy - Respiratory Respiratory exam: Present: CTAB. Absent: accessory muscle use, rales, rhonchi, wheezes - Cardiovascular Cardiovascular exam: Present: RRR, +S1, +S2. Absent: diastolic murmur, gallop, rubs, systolic murmur - GI/Abdominal GI/Abdominal exam: Present: normal bowel sounds, soft, no peritoneal signs. Absent: distended, tenderness - VTE Documentation of Mechanical Device: Graduated compression elastic hosiery
--- NOTE | 2016-09-28 14:14 | Physician Discharge Referral ---
Home Health/Hosp Referral Info Transfer to: Home Health Provider in Charge Post Discharge: PCP - Diagnosis (1) Status post right knee replacement Priority: Primary Status: Acute (2) Atrial fib/flutter, transient Priority: Secondary Status: Acute - Respiratory Orders Smoking Cessation: Smoking cessation has been advised. For more information, call the [place] Tobacco Quit Line at 7-318-VTDU-NOW. - Diet/Nutrition Diet/Nutrition Orders: No Concentrated Sweets - Activity Activity Orders: Walker - Services Needed Following services are medically necessary services: Nursing, Physical Therapy - Transfer Medications Home Medications: Aspirin Enteric Coated [Aspirin EC] 325 mg PO DAILY #21 tablet. 09/17/16 [Rx] Albuterol Sulfate [Proair Hfa] 2 puff IH Q4H PRN 09/18/16 [History] Atorvastatin [Lipitor] 40 mg PO HS 09/18/16 [History] Budesonide [Pulmicort Flexhaler 180mcg] 2 puff IH BID 09/18/16 [History] Cetirizine HCl [Zyrtec] 10 mg PO QPM 09/18/16 [History] Duloxetine HCl [Cymbalta] 60 mg PO DAILY 09/18/16 [History] Ergocalciferol (VITAMIN D2) [Vitamin D2] 50,000 unit PO QMONTH 09/18/16 [History ] Fluticasone Propionate Nasal [Flonase] 1 spr NS DAILY 09/18/16 [History] Losartan Potassium [Cozaar] 100 mg PO DAILY 09/18/16 [History] Magnesium Oxide [Magnesium] 250 mg PO DAILY 09/18/16 [History] Metformin HCl [Metformin HCl ER] 500 mg PO QPM 09/18/16 [History] Metoprolol Succinate 200 mg PO DAILY 09/18/16 [History] Omeprazole [PriLOSEC] 20 mg PO DAILY 09/18/16 [History] OxyCODONE Immed Rel [Roxicodone 5 MG] 5 mg PO Q6HR PRN 09/20/16 [History] Allergies/Adverse Reactions: Allergies ciprofloxacin [From Cipro] Allergy (Mild, Verified 09/18/16 09:34) Hives Certification: Further, I certify that my clinical findings support that this patient is homebound (i.e. absences from home require considerable and taxing effort and are for medical reasons or hinduism services or infrequently or short duration when for other reasons) because: Homebound Reason: Patient requires assistance of a person or device to safely leave home Attestation: My signature below is to certify that this patient is under my care and that I, or nurse practitioner, or a physician's clinical trials assistant working with me, has a face-to -face encounter with this patient.
[2016-09-28] MEDS: Metoprolol XL (24 HR) Succ 50 MG TAB.ER.24H PO SCH (18:43)
[2016-09-28] MEDS: Loratadine 10 MG TABLET PO SCH (18:43)
[2016-09-28] MEDS: *HR* Metformin 500 MG TABLET PO SCH (18:43)
[2016-09-28] MEDS: Fluticasone Propionate Nasal 50 MCG/SPRAY BOTTLE NS SCH (21:10)
[2016-09-29 07:21] VITALS: BP 131/64
[2016-09-29] MEDS: Beclomethasone 80mcg MDI IH SCH (08:21)
[2016-09-29] MEDS: Aspirin Enteric Coated 325 MG Tablet PO SCH (08:21)
[2016-09-29] MEDS: MAGNESIUM OXIDE 250 MG PO SCH (08:21)
[2016-09-29] MEDS: *HR* Digoxin 0.25 MG TABLET PO SCH (08:21)
[2016-09-29] MEDS: *HR* OxyCODONE/APAP 5/325 TABLET PO PRN (09:01)
== END 2016-09-29 11:50 | disposition home health service (06) | DRG 560 ==
LOC: INPGRE 11:25
PROVIDERS: ADMIT Internal Medicine; ATTEND Internal Medicine